=== PATIENT | female | born 1990 | race Caucasian/White ===

== ENCOUNTER 2024-01-04 07:04 | Emergency (ER) | payer MEDICAID, OTHER ==
[~2024-01-04] VITALS: Ht 149.9 cm; Wt 76.4 kg
[2024-01-04 07:25] VITALS: BP 128/79; PULSE 83; RESP 16; TEMP 97.6; O2SAT 99
[2024-01-04 08:31] LABS: FLU A ANTIGEN negative (NEGATIVE); FLU B ANTIGEN NEGATIVE (NEGATIVE)
[2024-01-04] MEDS ORDERED: FLONAS NS (08:49)
[2024-01-04] MEDS ORDERED: CETI1TAB PO (08:49)
[2024-01-04] MEDS ORDERED: [UNRECOGNIZED DRUG - CODE] PO (08:49)
== END 2024-01-04 09:00 | disposition home or self-care (01) ==
LOC: MED 07:04
DX: R09.82 Postnasal drip (principal); Z20.822 Contact with and (suspected) exposure to COVID-19; R05.9 Cough, unspecified; J02.9 Acute pharyngitis, unspecified; Z79.899 Other long term (current) drug therapy
CPT/HCPCS: 71046; 99284

== ENCOUNTER 2024-03-14 21:44 | Emergency (ER) | payer OTHER ==
[~2024-03-14] VITALS: Ht 149.9 cm; Wt 68.0 kg
[~2024-03-14 21:44] MED LIST: CETI1TAB PO; FLONAS NS; [UNRECOGNIZED DRUG - CODE] PO
[2024-03-14 21:57] VITALS: BP 131/84; PULSE 66; RESP 16; TEMP 98.2; O2SAT 98
[2024-03-14] MEDS ORDERED: NAPR-337 PO (23:18)
[2024-03-14] MEDS ORDERED: CLIN300C52 PO (23:18)
[2024-03-14 23:23] VITALS: BP 119/80; PULSE 72; RESP 16; TEMP 98.2; O2SAT 98
== END 2024-03-14 23:23 | disposition home or self-care (01) ==
LOC: MED 21:44
DX: K08.89 Other specified disorders of teeth and supporting structures (principal); Z79.899 Other long term (current) drug therapy
CPT/HCPCS: 99283